=== PATIENT | male | born 1985 | race Caucasian/White ===

== ENCOUNTER 2016-12-12 13:37 | Emergency (ER) | payer OTHER ==
[~2016-12-12 13:37] MED LIST: ERYTHROMYCIN O3.5 GM OD; FLEXERIL10 MG PO; LORTAB 5/500 TA1 TA1 PO; NO MEDICATIONS; ORUDIS75 M1 PO
== END 2016-12-12 14:28 | disposition home or self-care (01) ==
LOC: SED 13:37
DX: L03.116 Cellulitis of left lower limb (principal); I10 Essential (primary) hypertension; Z91.013 Allergy to seafood
CPT/HCPCS: 99282